=== PATIENT | male | born 1985 | race Caucasian/White ===

== ENCOUNTER 2018-05-27 14:49 | Emergency (ER) | payer SELFPAY ==
[~2018-05-27] VITALS: Ht 160 cm; Wt 54.5 kg
[2018-05-27 14:52] VITALS: BP 137/69; TEMP 98.4
[2018-05-27] MEDS ORDERED: ANUSOL HC CREAM30 GM TP (16:43)
[2018-05-27 17:00] VITALS: PULSE 83
== END 2018-05-27 17:01 | disposition home or self-care (01) ==
LOC: COL.ER 14:49
DX: K64.4 Residual hemorrhoidal skin tags (principal); Z87.891 Personal history of nicotine dependence

== ENCOUNTER 2018-11-05 11:10 | Emergency (ER) | payer SELFPAY ==
[~2018-11-05] VITALS: Ht 162.6 cm; Wt 54.5 kg
[~2018-11-05 11:10] MED LIST: ANUSOL HC CREAM30 GM TP
[2018-11-05 11:17] VITALS: BP 147/95; TEMP 98.3
[2018-11-05] MEDS ORDERED: NORCO 325 MG-51 TAB PO (11:53)
[2018-11-05] MEDS ORDERED: AMOXICILLIN 50500 MG PO (11:53)
[2018-11-05 12:15] VITALS: PULSE 71
== END 2018-11-05 12:28 | disposition home or self-care (01) ==
LOC: COL.ER 11:10
DX: K02.9 Dental caries, unspecified (principal); F17.210 Nicotine dependence, cigarettes, uncomplicated
CPT/HCPCS: J1885

== ENCOUNTER 2021-08-09 09:31 | Day surgery (SDC) | payer OTHER ==
[~2021-08-09] VITALS: Ht 162.6 cm; Wt 56.2 kg
[~2021-08-09 09:31] MED LIST changes: +AMOXICILLIN 50500 MG PO; +COLACE 100100 MG/CAP PO; +NORCO 325 MG-51 TAB PO
[2021-08-09 10:33] VITALS: BP 119/71; PULSE 57; TEMP 98.5
[2021-08-09 13:01] VITALS: BP 113/65; PULSE 64; TEMP 97.4
--- NOTE | 2021-08-09 13:01 | NUR ---
The patient arrived back to [facility] from the operating room at this time. The patient appears drowsy but arouses easily to his name. The patient's post operative vital signs were started at this time. The patient's is at his bedside at this time. Call light is within reach.
[2021-08-09 13:16] VITALS: BP 110/83; PULSE 65
--- NOTE | 2021-08-09 13:16 | NUR ---
The patient appears more alert and agrees to try some orange juice and a muffin at this time. The patient's vital signs appear stable. remain at his bedside.
[2021-08-09 13:31] VITALS: BP 113/60; PULSE 47
--- NOTE | 2021-08-09 13:31 | NUR ---
The patient's IV to his right arm was removed and a pressure dressing was applied to the site. The nurse instructed the patient to get dressed at this time.
--- NOTE | 2021-08-09 13:46 | NUR ---
Discharge instructions were reviewed with the patient and his at this time. They both verbalized understanding and have no questions for the nurse at this time. The patient is dressed and ready to be escorted out.
--- NOTE | 2021-08-09 13:53 | NUR ---
The patient was escorted out via wheelchair to a private vehicle by SAQIB Rowe. The patient's belongings and discharge paperwork were sent with him. The patient's is present to drive him home.
== END 2021-08-09 13:53 | disposition home or self-care (01) ==
LOC: SDCO 09:31
DX: K62.5 Hemorrhage of anus and rectum (principal); K64.0 First degree hemorrhoids
CPT/HCPCS: J2405; J2704; J3010

== ENCOUNTER 2021-12-09 17:09 | Emergency (ER) | payer OTHER ==
[~2021-12-09] VITALS: Ht 160 cm; Wt 59.1 kg
[2021-12-09 17:35] VITALS: TEMP 98
[2021-12-09] MEDS ORDERED: AMOXICILLIN 8751 TAB PO (18:06)
[2021-12-09 18:30] VITALS: BP 122/77; PULSE 65
== END 2021-12-09 18:30 | disposition home or self-care (01) ==
LOC: COL.ER 17:09
DX: K04.7 Periapical abscess without sinus (principal); K02.9 Dental caries, unspecified; Z28.311 Partially vaccinated for COVID-19
CPT/HCPCS: J1885

== ENCOUNTER 2022-06-10 23:12 | Emergency (ER) | payer SELFPAY ==
[~2022-06-10] VITALS: Ht 160 cm; Wt 59.1 kg
[~2022-06-10 23:12] MED LIST changes: +AMOXICILLIN 8751 TAB PO
[2022-06-10 23:24] VITALS: BP 158/93; TEMP 98.6
[2022-06-10] MEDS ORDERED: AMOXICILLIN 50500 MG PO (23:43)
[2022-06-10] MEDS ORDERED: NORCO 325 MG-51 TAB PO (23:43)
[2022-06-10 23:53] VITALS: PULSE 80
== END 2022-06-10 23:54 | disposition home or self-care (01) ==
LOC: COL.ER 23:12
DX: K08.89 Other specified disorders of teeth and supporting structures (principal)

== ENCOUNTER → 2023-12-16 | Outpatient (CLI) | payer OTHER ==
[~2023-12-16] MED LIST changes: +Albuterol 0.083% Neb Soln 2.5 MG/3 ML UD IH ONE; +KLONOPIN 0.5MG0.5 MG PO; +MOTRIN 600600 MG/TAB PO; +Methacholine Vial A (Clear Label Base-Cntrl) IH ONE; +Methacholine Vial B (Red Label) 0.0625 MG/ML 3 ML VIAL.NEB IH ONE; +Methacholine Vial C (Orange Label) 0.25 MG/ML 3 ML VIAL.NEB IH ONE; +Methacholine Vial D (Yellow Label) 1 MG/ML 3 ML VIAL.NEB IH ONE; +Methacholine Vial E (Green Label) 4 MG/ML 3 ML VIAL.NEB IH ONE; +Methacholine Vial F (Blue Label) 16 MG/ML 3 ML VIAL.NEB IH ONE; +NORCO 325 MG-7.1 TAB PO; +PROAIR HFA0.09 MG/AC IH
== END ==
LOC: COL.CARD 13:43
DX: R06.02 Shortness of breath (principal)
CPT/HCPCS: J7674

== ENCOUNTER 2023-12-18 05:21 | Day surgery (SDC) | payer OTHER ==
[~2023-12-18] VITALS: Ht 162.6 cm; Wt 48.8 kg
[~2023-12-18 05:21] MED LIST changes: -Albuterol 0.083% Neb Soln 2.5 MG/3 ML UD IH ONE; -KLONOPIN 0.5MG0.5 MG PO; +LR 1,000 ML IV SCH; -MOTRIN 600600 MG/TAB PO; -Methacholine Vial A (Clear Label Base-Cntrl) IH ONE; -Methacholine Vial B (Red Label) 0.0625 MG/ML 3 ML VIAL.NEB IH ONE; -Methacholine Vial C (Orange Label) 0.25 MG/ML 3 ML VIAL.NEB IH ONE; -Methacholine Vial D (Yellow Label) 1 MG/ML 3 ML VIAL.NEB IH ONE; -Methacholine Vial E (Green Label) 4 MG/ML 3 ML VIAL.NEB IH ONE; -Methacholine Vial F (Blue Label) 16 MG/ML 3 ML VIAL.NEB IH ONE; -NORCO 325 MG-7.1 TAB PO; -PROAIR HFA0.09 MG/AC IH
[2023-12-18] MEDS ORDERED: NORCO 325 MG-7.1 TAB PO ×2 (05:42→07:39)
[2023-12-18] MEDS ORDERED: PROAIR HFA0.09 MG/AC IH (05:43)
[2023-12-18] MEDS ORDERED: KLONOPIN 0.5MG0.5 MG PO (05:43)
[2023-12-18 05:48] VITALS: BP 105/71; PULSE 72; TEMP 97.4
--- NOTE | 2023-12-18 06:14 | NUR ---
Pt admitted to [facility] bay 8 at 0536. Alert, oriented x3, ambulates with steady gait. Admission assessments completed. Consents signed. Allergies, medications, and pharmacy confirmed. Earing removed. 20G IV inserted into RFA on first attempt, LR infusing without difficulty. Fiance brought to bedside. Cart in low position, Call light within reach. Questions answered. Patient denies complaints at this time.
[2023-12-18] MEDS ORDERED: fentaNYL 50 MCG/ML 2 ML VIAL ONE (06:41)
[2023-12-18] MEDS ORDERED: Lidocaine PF 2% (20 MG/ML) 5 ML VIAL ONE (06:41)
[2023-12-18] MEDS ORDERED: MOTRIN 600600 MG/TAB PO (07:40)
[2023-12-18] MEDS ORDERED: COLACE 100100 MG/CAP PO (07:40)
[2023-12-18 08:08] VITALS: BP 88/46; PULSE 56; TEMP 97.7
[2023-12-18 08:15] VITALS: BP 89/41; PULSE 59
--- NOTE | 2023-12-18 08:19 | NUR ---
Pt returns to [facility] bay 8 via cart at 0808. Monitors placed. Report received from Micky ADAME and Monica CUT OUT MACHINE OPERATOR. Pt awakens to verbal stimuli, immediately falls back asleep. Fiance at bedside. Cart in low position. Call light within reach.
[2023-12-18 08:30] VITALS: BP 99/55; PULSE 47
[2023-12-18 08:45] VITALS: BP 102/61; PULSE 48
[2023-12-18 09:00] VITALS: BP 91/59; PULSE 45
--- NOTE | 2023-12-18 09:42 | NUR ---
Pt awakens when staff enter room. Muffins and sprite given for snack. Denies pain and nausea. Gauze and mesh pants in place, CDI. Discharge instructions and education given to patient and [facility], questions answered. IV removed at that time. Pt discharged to [facility]'s car via w/c at 0930. Denies any complaints at that time.
== END 2023-12-18 09:30 | disposition home or self-care (01) ==
LOC: SDCO 05:21
DX: K64.8 Other hemorrhoids (principal); K64.4 Residual hemorrhoidal skin tags; F17.210 Nicotine dependence, cigarettes, uncomplicated; F17.290 Nicotine dependence, other tobacco product, uncomplicated
CPT/HCPCS: J0690; J2704; J3010; J7120

== ENCOUNTER 2024-01-20 08:43 | Emergency (ER) | payer OTHER ==
[~2024-01-20] VITALS: Ht 162.6 cm; Wt 54.5 kg
[~2024-01-20 08:43] MED LIST changes: +KLONOPIN 0.5MG0.5 MG PO; -LR 1,000 ML IV SCH; +MOTRIN 600600 MG/TAB PO; +NORCO 325 MG-7.1 TAB PO; +PROAIR HFA0.09 MG/AC IH
[2024-01-20 08:58] VITALS: BP 139/77; TEMP 97.9
[2024-01-20] MEDS ORDERED: PEN-VEE K500 MG PO (09:27)
[2024-01-20] MEDS ORDERED: Penicillin V-K 250 MG TAB PO ONE (09:30)
[2024-01-20] MEDS ORDERED: Ketorolac 30 MG/ML VIAL IM ONE (09:30)
[2024-01-20 09:41] VITALS: PULSE 60
[2024-01-20] MEDS ORDERED: Lidocaine PF 2% (20 MG/ML) 5 ML VIAL ONE (09:49)
[2024-01-20] MEDS ORDERED: ePHEDrine 50 MG/ML VIAL ONE (09:52)
== END 2024-01-20 09:44 | disposition home or self-care (01) ==
LOC: COL.ER 08:43
DX: K02.9 Dental caries, unspecified (principal); F17.290 Nicotine dependence, other tobacco product, uncomplicated
CPT/HCPCS: J1885; J2704